=== PATIENT | female | born 1990 | race Caucasian/White ===

== ENCOUNTER 2021-10-08 09:34 | Emergency (ER) | payer OTHER ==
[~2021-10-08] VITALS: Ht 162.6 cm; Wt 65.8 kg
[2021-10-08 10:15] VITALS: BP 121/73
--- NOTE | 2021-10-08 10:19 | NUR ---
PT TAKEN TO LOBBY BY EMS
--- NOTE | 2021-10-08 10:22 | NUR ---
LAST ETOH YESTERDAY DRINKS APPROX 1 BOTTLE OF VODKA DAILY X1 MONTH.
[2021-10-08] MEDS ORDERED: ONDA8TAB87 PO (11:36)
[2021-10-08] MEDS ORDERED: LIB25 PO (11:36)
[2021-10-08] MEDS ORDERED: ONDANSETRON 4 MG ODT PO ONE (11:45)
[2021-10-08] MEDS ORDERED: LORazepam 1 MG TAB PO ONE (11:45)
== END 2021-10-08 11:42 | disposition home or self-care (01) ==
LOC: MED 09:34
DX: F10.239 Alcohol dependence with withdrawal, unspecified (principal); F41.9 Anxiety disorder, unspecified; R11.2 Nausea with vomiting, unspecified; F17.210 Nicotine dependence, cigarettes, uncomplicated
CPT/HCPCS: 99283; Q0162

== ENCOUNTER 2021-11-19 05:30 | Emergency (ER) | payer OTHER ==
[~2021-11-19 05:30] MED LIST: LIB25 PO; ONDA8TAB87 PO
--- NOTE | 2021-11-19 05:37 | NUR ---
pt unbuckled self from [employer] and stated she is leaving. pt's boyfriend is in lobby.
== END 2021-11-19 05:37 | disposition left against medical advice (07) ==
LOC: MED 05:30
DX: F41.9 Anxiety disorder, unspecified (principal); Z53.21 Procedure and treatment not carried out due to patient leaving prior to being seen by health care provider

== ENCOUNTER 2024-03-29 17:18 | Emergency (ER) | payer OTHER ==
[~2024-03-29] VITALS: Ht 165.1 cm; Wt 63.5 kg
[~2024-03-29 17:18] MED LIST changes: +CHLO-757 PO; -LIB25 PO
[2024-03-29 17:40] VITALS: BP 113/82; PULSE 108; RESP 18; TEMP 98; O2SAT 98
[2024-03-29 18:22] LABS: BARBITURATE, URINE POSITIVE ng/ml (NEG <=200)
[2024-03-29 18:23] VITALS: BP 113/82; PULSE 108; RESP 18; TEMP 98; O2SAT 98
[2024-03-29 18:23] LABS: AMPHETAMINE, URINE NEGATIVE ng/ml (NEG <=1000); BENZODIAZEPINE, URINE POSITIVE ng/mL (NEG <=200); CANNABINOID, URINE NEGATIVE ng/mL (NEG <=50); COCAINE, URINE NEGATIVE ng/mL (NEG <=300); OPIATE, URINE NEGATIVE ng/mL (NEG <=2000); PHENCYCLIDINE SCREEN,URINE NEGATIVE ng/mL (NEG <=25)
[2024-03-29] MEDS ORDERED: LORazepam 1 MG TAB ONE (18:36)
[2024-03-29] MEDS: LORazepam 1 MG TAB PO ONE (18:45)
== END 2024-03-29 20:27 | disposition home or self-care (01) ==
LOC: MED 17:18
DX: S70.02XA Contusion of left hip, initial encounter (principal); F10.129 Alcohol abuse with intoxication, unspecified; F41.9 Anxiety disorder, unspecified; Z79.899 Other long term (current) drug therapy; Y90.9 Presence of alcohol in blood, level not specified; W18.39XA Other fall on same level, initial encounter; Y92.009 Unspecified place in unspecified non-institutional (private) residence as the place of occurrence of the external cause; Y93.89 Activity, other specified; Y99.8 Other external cause status
CPT/HCPCS: 80305; 81002; 81025; 99283